=== PATIENT | male | born 1945 | race Caucasian/White ===

== ENCOUNTER 2017-09-09 12:14 | Outpatient (CLI) | payer OTHER | END 2017-09-09 12:23 | disposition home or self-care (01) | LOC: LAB 12:14 | DX: R97.20 Elevated prostate specific antigen [PSA] (principal) ==

== ENCOUNTER 2017-10-18 07:14 | Outpatient (CLI) | payer OTHER | END 2017-10-18 07:22 | disposition home or self-care (01) | LOC: SONOGRAMA 07:14 | DX: R97.20 Elevated prostate specific antigen [PSA] (principal) ==

== ENCOUNTER 2021-01-18 05:49 | Day surgery (SDC) | payer OTHER ==
[~2021-01-18 05:49] MED LIST: ACTOS15 MG PO; ADULT LOW DOSE81 M1 PO; ATACAND16 MG PO; COQ PO; CRESTOR40 MG PO; FINASTERIDE5 MG PO; GLIMEPIRIDE4 M1 PO; HUM; JARDIANCE25 MG PO; NESINA25 MG PO; OMEGA3 PO
== END 2021-01-18 11:30 | disposition home or self-care (01) ==
LOC: CIR.AMB 05:49
PROVIDERS: ATTEND Urology
DX: C67.2 Malignant neoplasm of lateral wall of bladder (principal); C67.4 Malignant neoplasm of posterior wall of bladder; Z20.822 Contact with and (suspected) exposure to COVID-19

== ENCOUNTER 2021-06-07 10:00 | Outpatient (CLI) | payer OTHER | END 2021-06-07 10:08 | disposition home or self-care (01) | LOC: LAB 10:00 | PROVIDERS: ATTEND Urology | DX: N30.00 Acute cystitis without hematuria (principal) ==

== ENCOUNTER 2022-03-09 10:56 | Outpatient (CLI) | payer OTHER | END 2022-03-09 10:58 | disposition home or self-care (01) | LOC: LAB 10:56 | PROVIDERS: ATTEND Urology | DX: N30.00 Acute cystitis without hematuria (principal) ==

== ENCOUNTER 2022-03-19 09:38 | Inpatient (IN) | payer OTHER ==
[2022-03-21] MEDS ORDERED: ATARAX25 MG (08:34)
[2022-03-21] MEDS ORDERED: ALLOPURINOL100 MG (08:34)
[2022-03-21] MEDS ORDERED: TAMSULOSIN HCL0.4 MG (08:34)
[2022-03-21] MEDS ORDERED: CO Q-10200 MG (08:34)
[2022-03-21] MEDS ORDERED: DICLOFENAC SOD100 GM (08:34)
[2022-03-21] MEDS ORDERED: FUROSEMIDE20 MG (08:35)
[2022-03-21] MEDS ORDERED: TRIAMCINOLONE A15 G1 (08:35)
[2022-03-21] MEDS ORDERED: VIRT-CAPS SOFTGE1 MG (08:35)
[2022-03-21] MEDS ORDERED: METOLAZONE2.5 MG (08:35)
[2022-03-21] MEDS ORDERED: CLOTRIMAZOLE-BE15 G1 (08:35)
[2022-03-21] MEDS ORDERED: OMEGA-31000 MG (08:36)
[2022-03-21] MEDS ORDERED: HUMALOG MI100 UNIT/2 (08:37)
[2022-03-22] MEDS ORDERED: HYDRALAZINE HCL50 MG PO ×2 (07:04)
[2022-03-22] MEDS ORDERED: KALEXATE15 GM PO ×2 (07:04)
[2022-03-22] MEDS ORDERED: TAMS0.4C PO ×2 (07:04)
[2022-03-22] MEDS ORDERED: JARDIANCE25 MG PO ×2 (07:04)
[2022-03-22] MEDS ORDERED: GLIMEPIRIDE4 M1 PO ×2 (07:04)
[2022-03-22] MEDS ORDERED: NESINA25 MG PO ×2 (07:04)
== END 2022-03-22 11:05 | disposition home or self-care (01) | DRG 812 ==
LOC: SURH 09:38
PROVIDERS: ADMIT Internal Medicine; ATTEND Internal Medicine
PROC: 4A12X4Z Monitoring of Cardiac Electrical Activity, External Approach (ICD-10-PCS; principal; 2022-03-19)
PROC: 30233N1 Transfusion of Nonautologous Red Blood Cells into Peripheral Vein, Percutaneous Approach (ICD-10-PCS; 2022-03-20)
DX: D64.9 Anemia, unspecified (principal); N18.5 Chronic kidney disease, stage 5; N17.8 Other acute kidney failure; I13.2 Hypertensive heart and chronic kidney disease with heart failure and with stage 5 chronic kidney disease, or end stage renal disease; E87.5 Hyperkalemia; D63.1 Anemia in chronic kidney disease; N28.9 Disorder of kidney and ureter, unspecified; I50.9 Heart failure, unspecified; E11.22 Type 2 diabetes mellitus with diabetic chronic kidney disease; Z79.4 Long term (current) use of insulin; C61 Malignant neoplasm of prostate; C67.9 Malignant neoplasm of bladder, unspecified; N40.0 Benign prostatic hyperplasia without lower urinary tract symptoms; I25.10 Atherosclerotic heart disease of native coronary artery without angina pectoris; G47.33 Obstructive sleep apnea (adult) (pediatric); E03.9 Hypothyroidism, unspecified

== ENCOUNTER 2022-03-26 07:34 | Outpatient (CLI) | payer OTHER ==
[~2022-03-26 07:34] MED LIST changes: +ALLOPURINOL100 MG; +ATARAX25 MG; +CLOTRIMAZOLE-BE15 G1; +CO Q-10200 MG; +DICLOFENAC SOD100 GM; +FUROSEMIDE20 MG; +HUMALOG MI100 UNIT/2; +HYDRALAZINE HCL50 MG PO; +KALEXATE15 GM PO; +METOLAZONE2.5 MG; +OMEGA-31000 MG; +TAMS0.4C PO; +TAMSULOSIN HCL0.4 MG; +TRIAMCINOLONE A15 G1; +VIRT-CAPS SOFTGE1 MG
== END 2022-03-26 07:35 | disposition home or self-care (01) ==
LOC: LAB 07:34
PROVIDERS: ATTEND Internal Medicine
DX: I10 Essential (primary) hypertension (principal); Z01.818 Encounter for other preprocedural examination; Z20.822 Contact with and (suspected) exposure to COVID-19

== ENCOUNTER 2022-03-27 14:53 | Inpatient (IN) | payer OTHER ==
[~2022-03-27] VITALS: Ht 170.2 cm; Wt 101.6 kg
== END 2022-03-29 10:53 | disposition home or self-care (01) | DRG 714 ==
LOC: SURH 03-28 05:14 → O/R 03-28 05:14 → SURG 03-28 09:15 → SURH 03-28 11:16 → SURG 03-28 14:37 → SURH 03-29 10:53
PROVIDERS: ADMIT Urology; ATTEND Urology
PROC: 0VT08ZZ Resection of Prostate, Via Natural or Artificial Opening Endoscopic (ICD-10-PCS; principal; 2022-03-28 09:15)
DX: N40.1 Benign prostatic hyperplasia with lower urinary tract symptoms (principal); R33.8 Other retention of urine; Z20.822 Contact with and (suspected) exposure to COVID-19; E87.5 Hyperkalemia; Z85.51 Personal history of malignant neoplasm of bladder; E11.9 Type 2 diabetes mellitus without complications

== ENCOUNTER 2022-04-03 08:19 | Outpatient (CLI) | payer OTHER | END 2022-04-03 08:20 | disposition home or self-care (01) | LOC: LAB 08:19 | PROVIDERS: ATTEND Urology | DX: D62 Acute posthemorrhagic anemia (principal) ==

== ENCOUNTER 2022-12-05 11:02 | Inpatient (IN) | payer OTHER ==
[~2022-12-05] VITALS: Ht 170.2 cm; Wt 101.6 kg
[2022-12-05] MEDS ORDERED: LANTUS SOL100 UNIT/1 SQ (11:34)
== END 2022-12-08 14:46 | disposition home or self-care (01) | DRG 641 ==
LOC: ER 11:02 → MEDJ 20:39 → SEC-K 21:39 → MEDI 12-06 15:58
PROVIDERS: ADMIT Internal Medicine; ATTEND Internal Medicine
PROC: 3E0F7GC Introduction of Other Therapeutic Substance into Respiratory Tract, Via Natural or Artificial Opening (ICD-10-PCS; 2022-12-05)
PROC: 30233N1 Transfusion of Nonautologous Red Blood Cells into Peripheral Vein, Percutaneous Approach (ICD-10-PCS; principal; 2022-12-06)
PROC: 4A12X4Z Monitoring of Cardiac Electrical Activity, External Approach (ICD-10-PCS; 2022-12-06)
DX: E87.5 Hyperkalemia (principal); N18.5 Chronic kidney disease, stage 5; N17.8 Other acute kidney failure; C67.9 Malignant neoplasm of bladder, unspecified; D63.8 Anemia in other chronic diseases classified elsewhere; D63.1 Anemia in chronic kidney disease; Z79.4 Long term (current) use of insulin; I13.10 Hypertensive heart and chronic kidney disease without heart failure, with stage 1 through stage 4 chronic kidney disease, or unspecified chronic kidney disease; E11.22 Type 2 diabetes mellitus with diabetic chronic kidney disease

== ENCOUNTER 2023-03-21 07:52 | Outpatient (CLI) | payer OTHER ==
[~2023-03-21 07:52] MED LIST changes: +LANTUS SOL100 UNIT/1 SQ
== END 2023-03-21 07:58 | disposition home or self-care (01) ==
LOC: TOM 07:52
DX: R19.5 Other fecal abnormalities (principal)

== ENCOUNTER 2024-05-28 15:08 | Inpatient (IN) | payer OTHER ==
[~2024-05-28] VITALS: Ht 175.3 cm; Wt 89.8 kg
[2024-05-28 15:59] LABS: MEAN CELL VOLUME 103.6 fL (80.0-100.00); MEAN CORPUSCULAR HGB CONC 33.3 g/dl (32.0-36.0); PLATELET COUNT 140 K/uL (150-450); RED BLOOD COUNT 2.23 M/uL (4.00-6.00); RED CELL DISTRIBUTION WIDTH 14.2 % (11.5-14.5)
[2024-05-28 16:00] LABS: MEAN CORPUSCULAR HEMOGLOBIN 34.5 pg (27.00-32.0)
[2024-05-28 16:09] LABS: HEMATOCRIT 23.1 % (39.0-48.0)
[2024-05-28 16:13] LABS: INR 1.02; PROTHROMBIN TIME 11.1 SECONDS (9.0-11.5)
[2024-05-28 16:22] LABS: HEMOGLOBIN 7.7 g/dL (13-16.00)
[2024-05-28 16:28] LABS: ALBUMIN 3.5 gm/dL (3.4-5.0); BILIRUBIN TOTAL 0.29 mg/dL (0.3-1.2); CALCIUM 7.5 mg/dL (8.5-10.1); GLOBULINA 3.1 G/DL (2.4-3.5); POTASSIUM 5.28 mEq/L (3.5-5.1); TOTAL PROTEIN 6.6 gm/dL (6.4-8.2)
[2024-05-28 17:22] LABS: GFR 12.23
[2024-05-28 17:23] LABS: CREATININE SERUM 4.65 mg/dL (0.70-1.30)
[2024-05-28] MEDS ORDERED: PANTOPRAZOLE SODIUM 40 MG TABLET.DR PO SCH (17:41)
[2024-05-28] MEDS ORDERED: MULTIVIT INFUSN,ADULT 4,VIT K 10 ML VIAL IV SCH (17:43)
[2024-05-28] MEDS ORDERED: ACETAMINOPHEN 325 MG TABLET PO PRN (17:45)
[2024-05-28] MEDS ORDERED: FUROsemide 20 MG/2 ML VIAL IV SCH (17:45)
[2024-05-28] MEDS ORDERED: 0.9 % SODIUM CHLORIDE 1,000 ML IV SCH (17:45)
[2024-05-28 18:03] VITALS: BP 160/84; O2SAT 100
[2024-05-28] MEDS ORDERED: INSULIN LISPRO 1,000 UNIT/10 ML UNITS SUBCUTANEO PRN (19:00)
[2024-05-28] MEDS ORDERED: DEXTROSE 50 % IN WATER 0.5 G/ML DISP.SYRIN IV PRN (19:00)
[2024-05-28] MEDS ORDERED: CLONAZEPAM 1 MG TABLET PO SCH (21:00)
[2024-05-29 02:54] VITALS: BP 159/79; O2SAT 96
[2024-05-29 08:28] VITALS: BP 175/75; O2SAT 99
[2024-05-29] MEDS ORDERED: ATORVASTATIN CALCIUM 40 MG TABLET PO SCH (09:00)
[2024-05-29] MEDS ORDERED: FINASTERIDE 5 MG TABLET PO SCH (09:00)
[2024-05-29 17:58] VITALS: BP 180/81
[2024-05-29] MEDS ORDERED: ENALAPRILAT DIHYDRATE 1.25 MG/ML VIAL IV STA (19:55)
[2024-05-30 02:01] VITALS: BP 185/90; O2SAT 95
[2024-05-30 07:50] LABS: HEMATOCRIT 32.6 % (39.0-48.0); HEMOGLOBIN 11.2 g/dL (13-16.00); MEAN CELL VOLUME 95.1 fL (80.0-100.00); MEAN CORPUSCULAR HEMOGLOBIN 32.6 pg (27.00-32.0); MEAN CORPUSCULAR HGB CONC 34.2 g/dl (32.0-36.0); RED BLOOD COUNT 3.42 M/uL (4.00-6.00)
[2024-05-30 07:51] LABS: PLATELET COUNT 122 K/uL (150-450); RED CELL DISTRIBUTION WIDTH 19.9 % (11.5-14.5)
[2024-05-30 10:12] VITALS: BP 178/76; O2SAT 97
[2024-05-30] MEDS ORDERED: MEMANTINE HCL 5 MG TABLET PO SCH (17:00)
[2024-05-30] MEDS ORDERED: DONEPEZIL HCL 10 MG TABLET PO SCH (17:00)
[2024-05-30 17:38] VITALS: BP 150/85; O2SAT 100
[2024-05-30] MEDS ORDERED: DOXAZOSIN MESYLATE 8 MG TABLET PO SCH (21:00)
[2024-05-31 03:37] VITALS: BP 160/85; O2SAT 95
[2024-05-31 07:51] LABS: HEMATOCRIT 30.9 % (39.0-48.0); HEMOGLOBIN 10.8 g/dL (13-16.00); MEAN CELL VOLUME 94.8 fL (80.0-100.00); MEAN CORPUSCULAR HEMOGLOBIN 33.1 pg (27.00-32.0); MEAN CORPUSCULAR HGB CONC 34.9 g/dl (32.0-36.0); RED BLOOD COUNT 3.25 M/uL (4.00-6.00); RED CELL DISTRIBUTION WIDTH 19.3 % (11.5-14.5)
[2024-05-31 07:53] LABS: PLATELET COUNT 125 K/uL (150-450)
[2024-05-31 08:07] LABS: CALCIUM 7.3 mg/dL (8.5-10.1); POTASSIUM 5.11 mEq/L (3.5-5.1)
[2024-05-31 09:00] LABS: CREATININE SERUM 4.8 mg/dL (0.70-1.30); GFR 11.79
[2024-05-31 10:51] VITALS: BP 150/76; O2SAT 97
[2024-05-31] MEDS ORDERED: SODIUM POLYSTYRENE SULFONATE 15 G/4 TSP TSP PO SCH (17:00)
[2024-05-31 18:11] VITALS: BP 140/79
[2024-06-01 02:07] VITALS: BP 160/85; O2SAT 97
[2024-06-01 08:54] LABS: CALCIUM 7.3 mg/dL (8.5-10.1)
[2024-06-01 09:01] VITALS: BP 177/79; O2SAT 98
[2024-06-01 09:20] LABS: GFR 11.88
[2024-06-01 09:23] LABS: CREATININE SERUM 4.77 mg/dL (0.70-1.30); POTASSIUM 4.99 mEq/L (3.5-5.1)
[2024-06-01 17:49] VITALS: BP 150/80; O2SAT 96
[2024-06-02 01:18] VITALS: BP 162/72; O2SAT 98
[2024-06-02 08:15] VITALS: BP 176/80; O2SAT 98
[2024-06-02] MEDS ORDERED: LIDOCAINE HCL 1% 10ML VIAL IJ NR (09:00)
[2024-06-02] MEDS ORDERED: KETOROLAC TROMETHAMINE 30 MG VIAL IV NR (09:00)
[2024-06-02] MEDS ORDERED: ARICEPT10 MG PO (10:08)
[2024-06-02] MEDS ORDERED: LIPITOR40 M1 PO (10:08)
[2024-06-02] MEDS ORDERED: NAMENDA 5 MG PO (10:09)
[2024-06-02] MEDS ORDERED: DOXAZOSIN MESYLA8 MG PO (10:09)
[2024-06-02] MEDS ORDERED: FINASTERIDE5 MG PO (10:10)
== END 2024-06-02 10:17 | disposition home or self-care (01) | DRG 812 ==
LOC: MEDJ 15:08
PROVIDERS: ADMIT Internal Medicine Hematology & Oncology; ATTEND Internal Medicine Hematology & Oncology
PROC: 30233N1 Transfusion of Nonautologous Red Blood Cells into Peripheral Vein, Percutaneous Approach (ICD-10-PCS; 2024-05-29)
PROC: 079T3ZX Drainage of Bone Marrow, Percutaneous Approach, Diagnostic (ICD-10-PCS; principal; 2024-06-02)
DX: D64.9 Anemia, unspecified (principal); N18.4 Chronic kidney disease, stage 4 (severe); E87.5 Hyperkalemia
CPT/HCPCS: 240